=== PATIENT | male | born 1965 | race Two or more races ===

== ENCOUNTER 2018-02-25 08:46 | Emergency (ER) | payer MEDICARE ==
[~2018-02-25] VITALS: Ht 170.2 cm; Wt 80.0 kg
[2018-02-25 08:48] VITALS: BP 120/82
== END 2018-02-25 10:25 | disposition home or self-care (01) ==
LOC: ER 09:52
DX: H57.8 Other specified disorders of eye and adnexa (principal); H11.32 Conjunctival hemorrhage, left eye
CPT/HCPCS: 99283